=== PATIENT | male | born 1955 | race Hispanic/Latino ===

== ENCOUNTER 2019-11-27 12:19 | Inpatient (IN) | payer OTHER, MEDICARE ==
[~2019-11-27] VITALS: Ht 157.5 cm; Wt 81.6 kg
[~2019-11-27 12:19] MED LIST: FISH1CAP27 PO; GLIP5TAB11 PO; LISI10TA7 PO; TRAM50TA4 PO
[2019-11-27 12:27] LABS: ABG BASE EXCESS -10.7 mmol/L (-2.0-3.0); ABG HCO3 12.2 mmol/L (21.0-28.0); ABG OXYGEN SATURATION 96.3 % (95.0-99.0); ABG PCO2 22 mmHg (35-48)
[2019-11-27 12:57] LABS: BASOPHILS % (AUTO) 0.5 % (0.0-5.0); EOSINOPHILS % (AUTO) 0.7 % (0.0-8.0); HEMATOCRIT 38.5 % (42-54); LYMPHOCYTES % (AUTO) 14.7 % (21.0-51.0); MEAN CORPUSCULAR HEMOGLOBIN 30.5 pg (27.0-33.0); MEAN CORPUSCULAR HGB CONC 34.8 g/dL (32.0-36.0); MEAN CORPUSCULAR VOLUME 87.7 fL (79-99); MONOCYTES % (AUTO) 8.6 % (3.0-13.0); NEUTROPHILS % (AUTO) 74.9 % (40.0-77.0); PLATELET COUNT (AUTO) 425 K/uL (130-400); RED BLOOD CELL COUNT(AUTO) 4.39 MIL/uL (4.50-6.20); RED CELL DISTRIBUTION WIDTH 15.5 % (11.0-15.5); WHITE BLOOD COUNT (AUTO) 8.5 K/uL (4.8-10.8)
[2019-11-27] MEDS ORDERED: ZOSYN 3.375GM+NS 50ML 50 ML IV ONE (13:16)
[2019-11-27] MEDS ORDERED: SODIUM CHLORIDE 0.9% 500ML 500 ML IV ONE (13:17)
[2019-11-27 13:18] LABS: INR 1.13 (0.85-1.15); PARTIAL THROMBOPLASTIN TIME 26.4 SEC (26.3-35.5); PROTHROMBIN TIME 12.1 SEC (9.6-11.6)
[2019-11-27 13:45] LABS: ALBUMIN 2.4 g/dL (3.5-5.0); BILIRUBIN,TOTAL 0.7 mg/dL (0.2-1.0); CREATININE 3.4 mg/dL (0.5-1.5); POTASSIUM 5.8 mmol/L (3.5-5.1); TOTAL PROTEIN, SERUM 9.1 g/dL (6.0-8.3); TROPONIN I 0.1 ng/mL (0.00-0.06)
[2019-11-27] MEDS ORDERED: ENOXAPARIN SODIUM 100 MG/1 ML SQ ONE (13:55)
[2019-11-27] MEDS ORDERED: DEXTROSE 50%-WATER 50 ML DISP.SYRIN IV PRN (16:15)
[2019-11-27] MEDS ORDERED: POTASSIUM CHLORIDE 20 MEQ ERTAB PO PRN (16:15)
[2019-11-27] MEDS ORDERED: ONDANSETRON HCL 4 MG/2 ML VIAL IVP PRN (16:15)
[2019-11-27] MEDS ORDERED: POTASSIUM CHLORIDE 20MEQ/100ML 100 ML IV PRN (16:15)
[2019-11-27] MEDS ORDERED: HYDRALAZINE HCL 20 MG/ML VIAL IV PRN (16:15)
[2019-11-27] MEDS ORDERED: ACETAMINOPHEN 325 MG TAB PO PRN (16:15)
[2019-11-27] MEDS ORDERED: GLUCAGON 1MG KIT 1 MG ML IM PRN (16:15)
[2019-11-27] MEDS ORDERED: MAGNESIUM 2GM PREMIX 50ML 50 ML IV PRN (16:15)
[2019-11-27] MEDS ORDERED: LIDOCAINE HCL-MPF 1% 2ML VIAL IV PRN (16:15)
[2019-11-27] MEDS ORDERED: SODIUM BICARB 8.4% 50ML SYRINGE IVP STA (17:16)
[2019-11-27] MEDS ORDERED: INSULIN HUMULIN R 100 UNIT/ML 3ML IV SCH (19:30)
[2019-11-27] MEDS ORDERED: SODIUM POLYSTYRENE SULFONATE 15 GM/60 ML ML RC SCH (19:30)
[2019-11-27] MEDS ORDERED: CALCIUM GLUCONATE 1 GM in SODIUM CHLORIDE 0.9% 50 ML IV SCH (19:30)
[2019-11-27] MEDS ORDERED: SODIUM POLYSTYRENE SULFONATE 15 GM/60 ML ML ONE (21:01)
[2019-11-27] MEDS ORDERED: CALCIUM GLUCONATE 1 GM/10 ML VIAL IV ONE (21:02)
[2019-11-27] MEDS ORDERED: FAMOTIDINE 20MG TAB 20 MG TAB ONE (21:02)
[2019-11-27] MEDS ORDERED: DEXTROSE 50%-WATER 50 ML DISP.SYRIN IV ONE (21:03)
[2019-11-27] MEDS ORDERED: INSULIN HUMULIN R 100 UNIT/ML 3ML ONE (21:03)
[2019-11-27 23:45] LABS: POTASSIUM 5.5 mmol/L (3.5-5.1)
[2019-11-28] MEDS: INSULIN HUMULIN R 100 UNIT/ML 3ML SQ SCH ×6 (02:00→22:15)
[2019-11-28] MEDS: ENOXAPARIN SODIUM 100 MG/1 ML SQ SCH ×2 (02:00→08:02)
[2019-11-28] MEDS: SODIUM BICARB 8.4% 50ML SYRING 200 MEQ in DEXTROSE 5%-WATER 800 ML IV SCH ×2 (02:00→10:51)
--- NOTE | 2019-11-28 02:00 | NUR ---
Admission Pt admitted to room 225. Brought to room by ER Nurse Logan on stretcher, alert and oriented x4, patient is guinean speaking only. No distress noted. 02 via NC, no sob.
[2019-11-28 02:20] VITALS: BP 113/69
[2019-11-28 03:28] LABS: ABG HCO3 19.9 mmol/L (21.0-28.0); ABG OXYGEN SATURATION 99.1 % (95.0-99.0); ABG PCO2 33 mmHg (35-48)
[2019-11-28 06:49] LABS: BASOPHILS % (AUTO) 0.4 % (0.0-5.0); EOSINOPHILS % (AUTO) 0.6 % (0.0-8.0); HEMATOCRIT 31.7 % (42-54); LYMPHOCYTES % (AUTO) 14.7 % (21.0-51.0); MEAN CORPUSCULAR HGB CONC 32.5 g/dL (32.0-36.0); MEAN CORPUSCULAR VOLUME 83.2 fL (79-99); MONOCYTES % (AUTO) 12.6 % (3.0-13.0); NEUTROPHILS % (AUTO) 71.1 % (40.0-77.0); PLATELET COUNT (AUTO) 310 K/uL (130-400); RED BLOOD CELL COUNT(AUTO) 3.81 MIL/uL (4.50-6.20); RED CELL DISTRIBUTION WIDTH 14.7 % (11.0-15.5)
[2019-11-28 07:00] VITALS: BP 129/60
[2019-11-28 07:03] LABS: INR 1.77 (0.85-1.15); PARTIAL THROMBOPLASTIN TIME 48.9 SEC (26.3-35.5); PROTHROMBIN TIME 18.7 SEC (9.6-11.6)
[2019-11-28] MEDS: FAMOTIDINE 20MG TAB 20 MG TAB PO SCH (08:01)
[2019-11-28 09:22] LABS: ALBUMIN 2.1 g/dL (3.5-5.0); BILIRUBIN,DIRECT 0.2 mg/dL (0.0-0.3); BILIRUBIN,TOTAL 0.6 mg/dL (0.2-1.0); CREATININE 3.2 mg/dL (0.5-1.5); CRP QUANTITATIVE 22.5 mg/L (0.00-9.0); MAGNESIUM 2.2 mg/dL (1.80-2.40); PHOSPHORUS 4.6 mg/dL (2.5-4.9); POTASSIUM 4.1 mmol/L (3.5-5.1); TOTAL PROTEIN, SERUM 7.9 g/dL (6.0-8.3)
[2019-11-28] MEDS ORDERED: TRAMADOL HCL 50 MG TABLET PO PRN (10:15)
[2019-11-28 11:00] VITALS: BP 125/58
[2019-11-28 15:00] VITALS: BP 129/59
[2019-11-28] MEDS: AZITHROMYCIN 250 MG TABLET PO SCH (16:09)
[2019-11-28 16:22] LABS: APPEARANCE,URINE Turbid (CLEAR); BILIRUBIN,URINE Negative (NEGATIVE); COLOR,URINE Yellow (YELLOW); GLUCOSE, URINE (UA) Negative (NEGATIVE); KETONES,URINE Negative (NEGATIVE); LEUKOCYTE ESTERASE ,URINE Negative (NEGATIVE); NITRATE,URINE Negative (NEGATIVE); OCCULT BLOOD,URINE Large (NEGATIVE); PROTEIN,URINE POS 1+ mg/dL (NEGATIVE); UROBILINOGEN,URINE 0.2 mg/dL (0.2-1.0)
[2019-11-28 16:40] LABS: AMORPHOUS SEDIMENT,UR Moderate /LPF (None Seen); BACTERIA,URINE Few /HPF (None Seen); MUCUS,URINE Few LPF (None Seen); SQUAMOUS EPITHELIAL CELL,UR 0-2 /HPF (0-2)
--- NOTE | 2019-11-28 17:21 | NUR ---
CM NOTE spoke to pt and requested this cm to speak to his niece, provided phone # [phone]. call made to niece francis rios states she is also his POA., informed to bring in POA paperwork when able. she states pt resides at home with his brother in law brunilda mclean and recently lost his sister to [place] 19 that he was living with also. pt is independent with ambulation and adls/ provider assists 18hrs week with some adls. no dme. dc plan is back home at time of dc. states no dc needs. Addendum: 11/28/19 at 1729 by MYA PARADA Amended: Links added.
[2019-11-28 19:41] VITALS: BP 126/59
[2019-11-28] MEDS: SODIUM BICARBONATE 650 MG TAB PO SCH (22:16)
[2019-11-28 23:53] VITALS: BP 117/58
[2019-11-29 03:32] VITALS: BP 103/52
[2019-11-29 05:59] LABS: HEMATOCRIT 34.1 % (42-54); MEAN CORPUSCULAR HGB CONC 31.4 g/dL (32.0-36.0); MEAN CORPUSCULAR VOLUME 85.9 fL (79-99); RED BLOOD CELL COUNT(AUTO) 3.97 MIL/uL (4.50-6.20); RED CELL DISTRIBUTION WIDTH 14.6 % (11.0-15.5); WHITE BLOOD COUNT (AUTO) 6.3 K/uL (4.8-10.8)
[2019-11-29 06:03] LABS: MAGNESIUM 1.7 mg/dL (1.80-2.40); PHOSPHORUS 3.8 mg/dL (2.5-4.9)
[2019-11-29] MEDS: INSULIN HUMULIN R 100 UNIT/ML 3ML SQ SCH ×4 (07:03→21:52)
[2019-11-29 08:00] VITALS: BP 130/58
[2019-11-29] MEDS: DEXAMETHASONE SOD PHOSPHATE 4 MG/ML 1ML VIAL IV SCH (08:44)
[2019-11-29] MEDS: ENOXAPARIN SODIUM 100 MG/1 ML SQ SCH (08:44)
[2019-11-29] MEDS: SODIUM BICARBONATE 650 MG TAB PO SCH ×2 (08:44→21:09)
[2019-11-29] MEDS: FOLIC ACID/VITAMIN B COMP W-C 1 CAP TAB PO SCH (08:44)
[2019-11-29] MEDS: FAMOTIDINE 20MG TAB 20 MG TAB PO SCH (08:44)
[2019-11-29 12:00] VITALS: BP 128/60
[2019-11-29] MEDS: AZITHROMYCIN 250 MG TABLET PO SCH (12:57)
[2019-11-29] MEDS: SODIUM CHLORIDE 0.9% 1000ML 1,000 ML IV SCH (12:57)
--- NOTE | 2019-11-29 16:26 | NUR ---
Patient consented for convalescent plasma/blood product administration. Blood bank notified. Consent placed in chart. Family aware
[2019-11-29 17:42] VITALS: BP 133/65
[2019-11-29 21:10] VITALS: BP 127/58
[2019-11-29] MEDS ORDERED: FUROSEMIDE 10 MG/ML 4ML VIAL ONE (22:01)
[2019-11-29 23:37] VITALS: BP 129/59
[2019-11-30 04:22] LABS: BASOPHILS % (AUTO) 0.1 % (0.0-5.0); HEMATOCRIT 30.3 % (42-54); LYMPHOCYTES % (AUTO) 13.5 % (21.0-51.0); MEAN CORPUSCULAR HEMOGLOBIN 27.3 pg (27.0-33.0); MEAN CORPUSCULAR HGB CONC 32.7 g/dL (32.0-36.0); MEAN CORPUSCULAR VOLUME 83.5 fL (79-99); MONOCYTES % (AUTO) 8.7 % (3.0-13.0); NEUTROPHILS % (AUTO) 77.2 % (40.0-77.0); PLATELET COUNT (AUTO) 300 K/uL (130-400); RED BLOOD CELL COUNT(AUTO) 3.63 MIL/uL (4.50-6.20); RED CELL DISTRIBUTION WIDTH 13.8 % (11.0-15.5); WHITE BLOOD COUNT (AUTO) 7.7 K/uL (4.8-10.8)
[2019-11-30 04:46] VITALS: BP 143/55
[2019-11-30] MEDS: INSULIN HUMULIN R 100 UNIT/ML 3ML SQ SCH ×4 (04:49→21:16)
[2019-11-30] MEDS: SODIUM CHLORIDE 0.9% 1000ML 1,000 ML IV SCH (04:50)
[2019-11-30 05:23] LABS: ALBUMIN 2.2 g/dL (3.5-5.0); BILIRUBIN,TOTAL 0.8 mg/dL (0.2-1.0); CREATININE 2.4 mg/dL (0.5-1.5); MAGNESIUM 1.5 mg/dL (1.80-2.40); PHOSPHORUS 2.9 mg/dL (2.5-4.9); POTASSIUM 3.8 mmol/L (3.5-5.1); TOTAL PROTEIN, SERUM 6.3 g/dL (6.0-8.3)
[2019-11-30 08:00] VITALS: BP 117/60
[2019-11-30] MEDS: FOLIC ACID/VITAMIN B COMP W-C 1 CAP TAB PO SCH (08:20)
[2019-11-30] MEDS: FAMOTIDINE 20MG TAB 20 MG TAB PO SCH (08:20)
[2019-11-30] MEDS: SODIUM BICARBONATE 650 MG TAB PO SCH ×2 (08:20→21:13)
[2019-11-30] MEDS: ENOXAPARIN SODIUM 100 MG/1 ML SQ SCH (08:21)
[2019-11-30] MEDS: DEXAMETHASONE SOD PHOSPHATE 4 MG/ML 1ML VIAL IV SCH (08:21)
[2019-11-30 12:00] VITALS: BP 138/64
[2019-11-30] MEDS: AZITHROMYCIN 250 MG TABLET PO SCH (12:13)
[2019-11-30 16:00] VITALS: BP 112/52
[2019-11-30 21:15] VITALS: BP 138/64
[2019-11-30] MEDS: INSULIN GLARGINE 100 UNITS/ML 10 ML VIAL SQ SCH (21:17)
[2019-11-30 23:25] VITALS: BP 136/70
[2019-12-01] MEDS: SODIUM CHLORIDE 0.9% 1000ML 1,000 ML IV SCH (03:45)
[2019-12-01 04:54] LABS: EOSINOPHILS % (AUTO) 0.4 % (0.0-8.0); HEMATOCRIT 31.2 % (42-54); LYMPHOCYTES % (AUTO) 16.2 % (21.0-51.0); MEAN CORPUSCULAR HEMOGLOBIN 27.4 pg (27.0-33.0); MEAN CORPUSCULAR HGB CONC 32.7 g/dL (32.0-36.0); MEAN CORPUSCULAR VOLUME 83.9 fL (79-99); MONOCYTES % (AUTO) 11.1 % (3.0-13.0); NEUTROPHILS % (AUTO) 71.8 % (40.0-77.0); PLATELET COUNT (AUTO) 304 K/uL (130-400); RED BLOOD CELL COUNT(AUTO) 3.72 MIL/uL (4.50-6.20); RED CELL DISTRIBUTION WIDTH 13.9 % (11.0-15.5); WHITE BLOOD COUNT (AUTO) 9.5 K/uL (4.8-10.8)
[2019-12-01 05:07] VITALS: BP 133/70
[2019-12-01 05:34] LABS: BILIRUBIN,TOTAL 0.5 mg/dL (0.2-1.0); CREATININE 1.9 mg/dL (0.5-1.5); POTASSIUM 3.3 mmol/L (3.5-5.1); TOTAL PROTEIN, SERUM 6.5 g/dL (6.0-8.3)
[2019-12-01] MEDS: INSULIN HUMULIN R 100 UNIT/ML 3ML SQ SCH ×4 (07:21→21:04)
[2019-12-01 08:28] VITALS: BP 143/64
[2019-12-01] MEDS: FAMOTIDINE 20MG TAB 20 MG TAB PO SCH (09:15)
[2019-12-01] MEDS: DEXAMETHASONE SOD PHOSPHATE 4 MG/ML 1ML VIAL IV SCH (09:15)
[2019-12-01] MEDS: FOLIC ACID/VITAMIN B COMP W-C 1 CAP TAB PO SCH (09:15)
[2019-12-01] MEDS: SODIUM BICARBONATE 650 MG TAB PO SCH ×2 (09:15→21:04)
[2019-12-01] MEDS: ENOXAPARIN SODIUM 100 MG/1 ML SQ SCH (09:16)
[2019-12-01] MEDS: POTASSIUM CHLORIDE 10% ELIXIR 20 MEQ/15 ML UDCUP PO PRN ×2 (10:31→12:13)
[2019-12-01] MEDS: AZITHROMYCIN 250 MG TABLET PO SCH (12:13)
[2019-12-01 12:45] VITALS: BP 136/69
[2019-12-01 16:17] VITALS: BP 129/59
[2019-12-01 20:16] VITALS: BP 120/58
[2019-12-01] MEDS: INSULIN GLARGINE 100 UNITS/ML 10 ML VIAL SQ SCH (21:03)
[2019-12-01 23:37] VITALS: BP 117/51
[2019-12-02] MEDS: SODIUM CHLORIDE 0.9% 1000ML 1,000 ML IV SCH ×2 (00:29→16:46)
[2019-12-02 03:31] VITALS: BP 127/59
[2019-12-02 05:58] LABS: CREATININE 1.9 mg/dL (0.5-1.5)
[2019-12-02] MEDS: INSULIN HUMULIN R 100 UNIT/ML 3ML SQ SCH ×4 (06:16→18:31)
[2019-12-02 08:26] VITALS: BP 145/65
[2019-12-02] MEDS: ENOXAPARIN SODIUM 100 MG/1 ML SQ SCH (08:47)
[2019-12-02] MEDS: FAMOTIDINE 20MG TAB 20 MG TAB PO SCH (08:51)
[2019-12-02] MEDS: DEXAMETHASONE SOD PHOSPHATE 4 MG/ML 1ML VIAL IV SCH (08:51)
[2019-12-02] MEDS: FOLIC ACID/VITAMIN B COMP W-C 1 CAP TAB PO SCH (08:51)
[2019-12-02] MEDS: SODIUM BICARBONATE 650 MG TAB PO SCH ×2 (08:51→20:47)
[2019-12-02 12:24] VITALS: BP 132/66
[2019-12-02] MEDS: AZITHROMYCIN 250 MG TABLET PO SCH (12:40)
--- NOTE | 2019-12-02 14:30 | NUR ---
BS 420 COVERED W SSC 16 UNITS AND MACY PFEIFFER NOTIFIED ORDERS TO RECHECK IN ONE HOUR. [facility]PORT HAS BEEN CALLED TO [facility] RODRIGUEZ.
--- NOTE | 2019-12-02 14:45 | NUR ---
DC PLAN SPOKE TO KENTRELL REGARDING DC PLAN GAVE OKAY FOR [facility] WEBSITE. CALLED PATIENT ROOM SPOKE TO MR. ELIN SPENCE. SAID OKAY WITH GOING FOR THERAPY TO [facility]. UNDERSTOOD THAT [facility] IS FROM [facility] FOR COVID PATIENTS. GAVE VERBAL CONSENT GOT SECONDARY WITNESS ALVINA. LENORA ORTIZ. INFO EMAILED TO [facility] WEBSITE. PENDING CALL BACK. Addendum: 12/02/19 at 1447 by LAUREN MARCUS RN CM Amended: Links added.
[2019-12-02] MEDS ORDERED: DEXA6TAB PO (15:53)
[2019-12-02 16:35] VITALS: BP 139/58
--- NOTE | 2019-12-02 17:03 | NUR ---
DC PLAN AFTER TALKING TO PATIENT, NIECES AND NEPHEWS. FAMILY OKAY WITH HIM GOING TO [facility]. ANSWER ALL THE QUESTIONS REGARDING FACILITY. LET KENTRELL LIME SLAKER KNOW ALSO LET HER KNOW OF REQUEST FROM HOSPITALIST REGARDING NO PLAN FOR PNEUMOMEDIASTANIUM IN CT FROM 11/26. LET NURSE KNOW OF DC ORDER AND MOT PENDING HOUSE SIGNATURE FOR TRANSFER. PATIENT WILL GO VIA EMS DUE TO DEBILITY AND NC 4L. Addendum: 12/02/19 at 1707 by LAUREN MARCUS RN CM Amended: Links added.
--- NOTE | 2019-12-02 17:30 | NUR ---
RECHECK ON BS 317 KENTRELL CAVAZOS NOTIFIED TOLD TO HOLD TRANSFER AT THIS TIME, NO FURTHER ORDERS, LAY CALLED BACK AT [facility] AND UPDATE GIVEN AT THIS TIME
--- NOTE | 2019-12-02 18:36 | NUR ---
MACY PFEIFFER TEXT BACK TO COVER W/SSC 14 UNITS GIVEN LILIANA R.
[2019-12-02 19:54] VITALS: BP 127/61
[2019-12-02] MEDS: INSULIN GLARGINE 100 UNITS/ML 10 ML VIAL SQ SCH (20:49)
[2019-12-02 23:22] VITALS: BP 118/58
[2019-12-03 03:22] VITALS: BP 115/59
[2019-12-03 05:40] LABS: BASOPHILS % (AUTO) 0.1 % (0.0-5.0); EOSINOPHILS % (AUTO) 1.3 % (0.0-8.0); HEMATOCRIT 30.7 % (42-54); LYMPHOCYTES % (AUTO) 17.7 % (21.0-51.0); MEAN CORPUSCULAR HGB CONC 31.3 g/dL (32.0-36.0); MEAN CORPUSCULAR VOLUME 86.2 fL (79-99); MONOCYTES % (AUTO) 10.8 % (3.0-13.0); NEUTROPHILS % (AUTO) 69.1 % (40.0-77.0); PLATELET COUNT (AUTO) 289 K/uL (130-400); RED BLOOD CELL COUNT(AUTO) 3.56 MIL/uL (4.50-6.20); WHITE BLOOD COUNT (AUTO) 9.9 K/uL (4.8-10.8)
[2019-12-03 05:58] LABS: MAGNESIUM 1.2 mg/dL (1.80-2.40); PHOSPHORUS 2.7 mg/dL (2.5-4.9)
[2019-12-03] MEDS: INSULIN HUMULIN R 100 UNIT/ML 3ML SQ SCH ×2 (07:30→11:54)
[2019-12-03 08:24] VITALS: BP 143/56
[2019-12-03] MEDS: FAMOTIDINE 20MG TAB 20 MG TAB PO SCH (09:28)
[2019-12-03] MEDS: DEXAMETHASONE SOD PHOSPHATE 4 MG/ML 1ML VIAL IV SCH (09:28)
[2019-12-03] MEDS: FOLIC ACID/VITAMIN B COMP W-C 1 CAP TAB PO SCH (09:28)
[2019-12-03] MEDS: ENOXAPARIN SODIUM 100 MG/1 ML SQ SCH (09:29)
[2019-12-03] MEDS: SODIUM BICARBONATE 650 MG TAB PO SCH (10:23)
[2019-12-03 12:14] VITALS: BP 112/59
[2019-12-03] MEDS: AZITHROMYCIN 250 MG TABLET PO SCH (13:19)
--- NOTE | 2019-12-03 14:28 | NUR ---
EMS TRANSFER TO [facility]. TELELMETRY MONITOR REMOVED, BELONGINGS GIVEN TO TRANSPORT TEAM AND D/C PACKET GIVEN TO TRANSPORT TEAM, REPORT CALLED TO ERIKA RODRIGUEZ AT [facility].
== END 2019-12-03 14:30 | disposition disaster alternative care site (69) | DRG 177 ==
LOC: EDH 12:19 → OBSVTOIN 15:51 → EDHIP 15:51 → UNDOADMOB 15:51 → INTOOBSV 15:51 → 2DH 11-28 01:28 → EDHIP 11-28 01:28
PROVIDERS: ADMIT Internal Medicine Critical Care Medicine; ATTEND Internal Medicine Critical Care Medicine
PROC: XW13325 Transfusion of Convalescent Plasma (Nonautologous) into Peripheral Vein, Percutaneous Approach, New Technology Group 5 (ICD-10-PCS; principal; 2019-11-29)
DX: U07.1 COVID-19 (principal); J12.89 Other viral pneumonia; J96.01 Acute respiratory failure with hypoxia; J90 Pleural effusion, not elsewhere classified; N17.9 Acute kidney failure, unspecified; M62.82 Rhabdomyolysis; I10 Essential (primary) hypertension; E87.5 Hyperkalemia; E11.9 Type 2 diabetes mellitus without complications; D64.9 Anemia, unspecified; E11.22 Type 2 diabetes mellitus with diabetic chronic kidney disease; E11.51 Type 2 diabetes mellitus with diabetic peripheral angiopathy without gangrene; E78.5 Hyperlipidemia, unspecified; I12.9 Hypertensive chronic kidney disease with stage 1 through stage 4 chronic kidney disease, or unspecified chronic kidney disease; N18.9 Chronic kidney disease, unspecified; Z86.19 Personal history of other infectious and parasitic diseases; Z88.0 Allergy status to penicillin
CPT/HCPCS: 36415; 36430; 36600; 71045; 71250; 76770; 80048; 80053; 81001; 82248; 82550; 82728; 82803; 82948; 83605; 83735; 83874; 84100; 84132; 84145; 84484; 85025; 85027; 85378; 85610; 85730; 86140; 86900; 86901; 86927; 87040; 87088; 87426; 93005; 93970; 97039; G0378; J0610; J1100; J1650; J1815; J1940; J2543; J3475; J3490; J7030; J7040; J7070; U0003

== ENCOUNTER 2020-02-11 02:14 | Inpatient (IN) | payer OTHER, MEDICARE ==
[~2020-02-11] VITALS: Ht 157.5 cm; Wt 88.9 kg
[~2020-02-11 02:14] MED LIST changes: +DEXA6TAB PO
[2020-02-11] MEDS ORDERED: MORPHINE SULFATE 2 MG/ML 1ML SYG ONE (02:48)
[2020-02-11] MEDS ORDERED: ONDANSETRON HCL 4 MG/2 ML VIAL ONE (02:48)
[2020-02-11 02:53] LABS: BASOPHILS % (AUTO) 1.1 % (0.0-5.0); EOSINOPHILS % (AUTO) 6.7 % (0.0-8.0); HEMATOCRIT 35.1 % (42-54); MEAN CORPUSCULAR HEMOGLOBIN 27.9 pg (27.0-33.0); MEAN CORPUSCULAR HGB CONC 31.3 g/dL (32.0-36.0); MEAN CORPUSCULAR VOLUME 89.1 fL (79-99); MONOCYTES % (AUTO) 10.1 % (3.0-13.0); NEUTROPHILS % (AUTO) 59.7 % (40.0-77.0); PLATELET COUNT (AUTO) 341 K/uL (130-400); RED BLOOD CELL COUNT(AUTO) 3.94 MIL/uL (4.50-6.20); RED CELL DISTRIBUTION WIDTH 14.9 % (11.0-15.5); WHITE BLOOD COUNT (AUTO) 10.5 K/uL (4.8-10.8)
[2020-02-11 03:02] LABS: CREATININE 1.6 mg/dL (0.5-1.5); POTASSIUM 4.5 mmol/L (3.5-5.1)
[2020-02-11 03:06] LABS: BILIRUBIN,TOTAL 0.3 mg/dL (0.2-1.0); TOTAL PROTEIN, SERUM 7.3 g/dL (6.0-8.3)
[2020-02-11 04:00] LABS: APPEARANCE,URINE Cloudy (CLEAR); BILIRUBIN,URINE Negative (NEGATIVE); COLOR,URINE Yellow (YELLOW); GLUCOSE, URINE (UA) Negative (NEGATIVE); KETONES,URINE Negative (NEGATIVE); LEUKOCYTE ESTERASE ,URINE Large (NEGATIVE); NITRATE,URINE Positive (NEGATIVE); OCCULT BLOOD,URINE Negative (NEGATIVE); PH,URINE 6.5 (5.0-8.0); PROTEIN,URINE Negative (NEGATIVE)
[2020-02-11 04:17] LABS: BACTERIA,URINE Many /HPF (None Seen); RBC,URINE None Seen /HPF (0-1); WBC,URINE 26-50 /HPF (0-1)
[2020-02-11] MEDS ORDERED: DIATR MEGLU/DIATRIZOATE SODIUM 30 ML BOTTLE ONE (05:50)
[2020-02-11] MEDS ORDERED: SODIUM CHLORIDE 0.9% 50 ML IV ONE (06:30)
[2020-02-11] MEDS ORDERED: CEFTRIAXONE SODIUM 2 GM VIAL ONE (08:21)
[2020-02-11] MEDS ORDERED: SODIUM CHLORIDE 0.9% 100 ML IV ONE (08:22)
[2020-02-11] MEDS: D5W-1/2 NS/20MEQ KCL 1,000 ML IV SCH (10:15)
[2020-02-11] MEDS ORDERED: MORPHINE SULFATE 2 MG/ML 1ML SYG IV PRN (12:15)
[2020-02-11] MEDS ORDERED: IPRATROPIUM/ALBUTEROL SULFATE 3 ML SOLUTION IH PRN (12:15)
[2020-02-11] MEDS ORDERED: HYDRALAZINE HCL 20 MG/ML VIAL IV PRN (12:15)
[2020-02-11] MEDS ORDERED: LIDOCAINE HCL-MPF 1% 2ML VIAL IV PRN (12:15)
[2020-02-11] MEDS ORDERED: GLUCAGON 1MG KIT 1 MG ML IM PRN (12:15)
[2020-02-11] MEDS ORDERED: ONDANSETRON HCL 4 MG/2 ML VIAL IVP PRN (12:15)
[2020-02-11] MEDS ORDERED: DEXTROSE 50%-WATER 50 ML DISP.SYRIN IV PRN (12:15)
[2020-02-11] MEDS ORDERED: POTASSIUM CHLORIDE 10MEQ/100ML 100 ML IV PRN (12:15)
[2020-02-11] MEDS ORDERED: LEVOFLOXACIN 500 MG/D5W 100 ML 100 ML ONE (13:37)
[2020-02-11] MEDS ORDERED: LEVOFLOXACIN 500 MG/D5W 100 ML 100 ML IV SCH (14:00)
[2020-02-11] MEDS ORDERED: METRONIDAZOLE 500MG/100ML BAG 100 ML ONE (15:46)
[2020-02-12 05:32] LABS: HEMATOCRIT 31.8 % (42-54); MEAN CORPUSCULAR HGB CONC 31.4 g/dL (32.0-36.0); MEAN CORPUSCULAR VOLUME 89.1 fL (79-99); RED BLOOD CELL COUNT(AUTO) 3.57 MIL/uL (4.50-6.20); RED CELL DISTRIBUTION WIDTH 14.6 % (11.0-15.5); WHITE BLOOD COUNT (AUTO) 6.6 K/uL (4.8-10.8)
[2020-02-12 05:38] LABS: CREATININE 1.4 mg/dL (0.5-1.5); POTASSIUM 3.9 mmol/L (3.5-5.1)
[2020-02-12] MEDS ORDERED: ENOXAPARIN SODIUM 40 MG/0.4 ML SYRINGE SQ ONE (09:00)
[2020-02-12] MEDS ORDERED: FAMOTIDINE/PF 20 MG/2 ML VIAL IV ONE (09:01)
--- NOTE | 2020-02-12 11:49 | NUR ---
ARRIVED TO FLOOR Report received from Marcelle STALLINGS RN at 1135 Pt arrived to floor, transferred to bed at 1150. NAD at this time. Will initiate admission process.
[2020-02-12 12:30] VITALS: BP 150/64
[2020-02-12] MEDS: METRONIDAZOLE 500MG/100ML BAG 100 ML IVPB SCH ×5 (13:01→21:03)
[2020-02-12] MEDS: SODIUM CHLORIDE 0.9% 1000ML 1,000 ML IV SCH ×4 (13:01→18:43)
[2020-02-12] MEDS: FAMOTIDINE/PF 20 MG/2 ML VIAL IV SCH (13:02)
[2020-02-12] MEDS: ENOXAPARIN SODIUM 40 MG/0.4 ML SYRINGE SQ SCH (13:02)
[2020-02-12] MEDS: D5W-1/2 NS/20MEQ KCL 1,000 ML IV SCH ×3 (13:02→16:15)
[2020-02-12] MEDS ORDERED: INSLAN SQ (13:29)
[2020-02-12] MEDS ORDERED: LISI10TA7 PO (13:29)
[2020-02-12] MEDS ORDERED: ROSU40TA21 PO (13:29)
[2020-02-12] MEDS ORDERED: LEVOFLOXACIN 250 MG/D5W 50ML 50 ML IVPB SCH (14:00)
[2020-02-12 16:00] VITALS: BP 145/72
--- NOTE | 2020-02-12 16:13 | NUR ---
INITIAL: Met with pt this afternoon to discuss dcp. Pt mentions that he lives w his nephew( Michael Witt) and brother in law (Viri Witt). Pt mentions that he is independent w ambulation and ADLs. He has provider services 3hrs/day. He owns a wc and states that his niece (Sonja) assists w transportation. Pt mentions that he feels safe and comfortable to return home at ri. CM to continue to follow and wait for Md recommendations.
[2020-02-12 19:35] VITALS: BP 163/97
[2020-02-12 23:49] VITALS: BP 135/61
[2020-02-13 04:16] VITALS: BP 147/65
[2020-02-13] MEDS: METRONIDAZOLE 500MG/100ML BAG 100 ML IVPB SCH (05:46)
[2020-02-13 08:00] VITALS: BP 148/64
[2020-02-13] MEDS: ENOXAPARIN SODIUM 40 MG/0.4 ML SYRINGE SQ SCH (08:41)
[2020-02-13] MEDS: FAMOTIDINE/PF 20 MG/2 ML VIAL IV SCH (08:41)
[2020-02-13 11:46] VITALS: BP 144/68
[2020-02-13] MEDS: SODIUM CHLORIDE 0.9% 1000ML 1,000 ML IV SCH ×3 (12:55→23:09)
[2020-02-13] MEDS ORDERED: MERO500V21 IV (14:17)
[2020-02-13] MEDS: MEROPENEM 500 MG VIAL IVP SCH ×2 (14:43→23:08)
--- NOTE | 2020-02-13 15:30 | NUR ---
[facility] Order received for SNF referral for buttermilk drier operator IV ABX. Spoke w pt and niece Henna (over the phone) to discuss Md recommendations. Reviewed w them in network facilities. Pt and niece decided on [facility] DIANA/PC consent signed. Referral/PASSR faxed to Alej[facility] (cover for [facility]). Informed pending PICC and COVID test. CM to continue to follow.
[2020-02-13 16:00] VITALS: BP 147/55
[2020-02-13] MEDS: INSULIN GLARGINE 100 UNITS/ML 10 ML VIAL SQ SCH (20:21)
[2020-02-13] MEDS: Rosuvastatin Calcium 40 MG PO SCH (20:21)
[2020-02-13 20:22] VITALS: BP 137/64
--- NOTE | 2020-02-13 20:25 | NUR ---
MEDS SHIFT ASSESSMENT DONE, PLEASE REFER TO CHART. DUE MEDS ADMINISTERED, TOLERATED WELL. CALL LIGHT WITHIN REACH. WILL MONITOR PT. Addendum: 02/13/20 at 2156 by GREG AGUIRRE RN RN Amended: Links added.
--- NOTE | 2020-02-13 23:20 | NUR ---
CONSENT PT INFORMED OF PLAN FOR PICC LINE PLACEMENT. PT VERBALIZED UNDERSTANDING AND AGREED TO PROCEDURE. CONSENT SIGNED BY PT, WITNESSED BY SECURITY ASSISTANT. FORM PLACED IN CHART.
[2020-02-13 23:52] VITALS: BP 164/78
--- NOTE | 2020-02-14 01:41 | NUR ---
ROUNDS PT RESTING WELL. NO DISTRESS NOTED. KEPT UNDISTURBED FOR NOW. WILL CONTINUE TO MONITOR. CALL LIGHT WITHIN REACH.
[2020-02-14 04:26] VITALS: BP 132/67
[2020-02-14 05:14] LABS: PARTIAL THROMBOPLASTIN TIME 27.4 SEC (26.3-35.5); PROTHROMBIN TIME 10.8 SEC (9.6-11.6)
[2020-02-14] MEDS: MEROPENEM 500 MG VIAL IVP SCH ×3 (06:01→23:05)
--- NOTE | 2020-02-14 06:05 | NUR ---
MEDS PT ALREADY AWAKE, NO CONCERNS VERBALIZED. NO DISTRESS NOTED. DUE MEDS ADMINISTERED, TOLERATED WELL. KEPT COMFORTABLE. FOR MORE CARE.
[2020-02-14 07:58] VITALS: BP 142/73
[2020-02-14] MEDS: INSULIN GLARGINE 100 UNITS/ML 10 ML VIAL SQ SCH ×2 (08:27→20:13)
[2020-02-14] MEDS: ENOXAPARIN SODIUM 40 MG/0.4 ML SYRINGE SQ SCH (08:47)
[2020-02-14] MEDS: FAMOTIDINE/PF 20 MG/2 ML VIAL IV SCH (08:48)
[2020-02-14] MEDS: LISINOPRIL 10 MG TABLET PO SCH (08:48)
[2020-02-14] MEDS: SODIUM CHLORIDE 0.9% 1000ML 1,000 ML IV SCH ×2 (10:11→20:13)
[2020-02-14 11:31] VITALS: BP 138/64
[2020-02-14 16:31] VITALS: BP 143/75
[2020-02-14 19:56] VITALS: BP 150/72
[2020-02-14] MEDS: Rosuvastatin Calcium 40 MG PO SCH (20:08)
--- NOTE | 2020-02-14 20:15 | NUR ---
MEDS SHIFT ASSESSMENT DONE, PLEASE REFER TO CHART. DUE MEDS ADMINISTERED, TOLERATED WELL. KEPT COMFORTABLE IN BED. CALL LIGHT WITHIN REACH. WILL MONITOR PT. Addendum: 02/14/20 at 2048 by GREG AGUIRRE RN RN Amended: Links added.
[2020-02-14 23:26] VITALS: BP 141/71
[2020-02-15] VITALS (8 sets, daily range): BP systolic 130–180; BP diastolic 67–91
--- NOTE | 2020-02-15 02:00 | NUR ---
ROUNDS PT RESTING WELL, FAIRLY ASLEEP. NO DISTRESS NOTED. KEPT UNDISTURBED FOR NOW. WILL CONTINUE TO MONITOR.
[2020-02-15] MEDS: SODIUM CHLORIDE 0.9% 1000ML 1,000 ML IV SCH ×3 (03:02→16:15)
[2020-02-15] MEDS: MEROPENEM 500 MG VIAL IVP SCH ×3 (05:29→23:34)
--- NOTE | 2020-02-15 05:34 | NUR ---
ROUNDS PT STILL SLEEPY BUT COHERENT WHEN CONVERSING. DENIES ANY NEEDS AT THIS TIME. NO DISTRESS NOTED. DUE IV ANTIBIOTICS HUNG. KEPT RESTED. FOR MORE CARE.
[2020-02-15] MEDS: ENOXAPARIN SODIUM 40 MG/0.4 ML SYRINGE SQ SCH (10:21)
[2020-02-15] MEDS: FAMOTIDINE/PF 20 MG/2 ML VIAL IV SCH (10:21)
[2020-02-15] MEDS: LISINOPRIL 10 MG TABLET PO SCH (10:21)
[2020-02-15] MEDS: INSULIN GLARGINE 100 UNITS/ML 10 ML VIAL SQ SCH ×2 (11:09→21:14)
[2020-02-15] MEDS ORDERED: LABETALOL 20 MG/4 ML DISP.SYRIN IV PRN (17:15)
[2020-02-15] MEDS: Rosuvastatin Calcium 40 MG PO SCH (21:00)
[2020-02-16 03:20] VITALS: BP 135/66
[2020-02-16 06:09] LABS: HEMATOCRIT 29.3 % (42-54); MEAN CORPUSCULAR HEMOGLOBIN 27.9 pg (27.0-33.0); MEAN CORPUSCULAR HGB CONC 32.1 g/dL (32.0-36.0); MEAN CORPUSCULAR VOLUME 86.9 fL (79-99); RED BLOOD CELL COUNT(AUTO) 3.37 MIL/uL (4.50-6.20); RED CELL DISTRIBUTION WIDTH 14.1 % (11.0-15.5); WHITE BLOOD COUNT (AUTO) 7.7 K/uL (4.8-10.8)
[2020-02-16 06:32] LABS: ALBUMIN 2.4 g/dL (3.5-5.0); BILIRUBIN,TOTAL 0.2 mg/dL (0.2-1.0); CREATININE 1.2 mg/dL (0.5-1.5); POTASSIUM 3.5 mmol/L (3.5-5.1); TOTAL PROTEIN, SERUM 5.9 g/dL (6.0-8.3)
[2020-02-16 08:00] VITALS: BP 136/68
[2020-02-16] MEDS: Rosuvastatin Calcium 40 MG PO SCH (08:22)
[2020-02-16] MEDS: FAMOTIDINE/PF 20 MG/2 ML VIAL IV SCH (08:31)
[2020-02-16] MEDS: MEROPENEM 500 MG VIAL IVP SCH ×2 (08:31→16:26)
[2020-02-16] MEDS: ENOXAPARIN SODIUM 40 MG/0.4 ML SYRINGE SQ SCH (08:31)
[2020-02-16] MEDS: LISINOPRIL 10 MG TABLET PO SCH (08:31)
[2020-02-16] MEDS: INSULIN GLARGINE 100 UNITS/ML 10 ML VIAL SQ SCH (08:34)
[2020-02-16] MEDS: SODIUM CHLORIDE 0.9% 1000ML 1,000 ML IV SCH (11:25)
[2020-02-16 12:00] VITALS: BP 142/68
--- NOTE | 2020-02-16 13:29 | NUR ---
[facility] APPROVED PER MARSHALL FLORES, AUTH RECEIVED FOR SNF. PRIMARY NURSE, ALESSANDRA RODRIGUEZ, MADE AWARE. PRIMARY NURSE TO CALL CHRONIC DISEASE EPIDEMIOLOGIST FROM [facility] AND OBTAIN MED REC. STANDING DC ORDER IN [employer]. PATIENT TO DC VIA SNF FACILITY [facility].
[2020-02-16 16:00] VITALS: BP 138/70
--- NOTE | 2020-02-16 18:07 | NUR ---
REPORT GIVEN TO ANABEL FROM [facility] . MED RECONCILATION FAXED AND ORIGINAL IN PACKET TO BE SENT WITH FACILITY CAKE FROSTER. VITALS STABLE AT DC
== END 2020-02-16 18:50 | DRG 389 ==
LOC: EDH 02:14 → OBSVTOIN 12:06 → EDHIP 12:06 → 4AH 02-12 11:52
PROVIDERS: ADMIT Internal Medicine Critical Care Medicine; ATTEND Internal Medicine Critical Care Medicine
PROC: 02HV33Z Insertion of Infusion Device into Superior Vena Cava, Percutaneous Approach (ICD-10-PCS; principal; 2020-02-14)
DX: K56.600 Partial intestinal obstruction, unspecified as to cause (principal); N17.9 Acute kidney failure, unspecified; N39.0 Urinary tract infection, site not specified; E66.9 Obesity, unspecified; E11.9 Type 2 diabetes mellitus without complications; I10 Essential (primary) hypertension; E78.5 Hyperlipidemia, unspecified; B96.1 Klebsiella pneumoniae [K. pneumoniae] as the cause of diseases classified elsewhere; Z20.828 Contact with and (suspected) exposure to other viral communicable diseases; Z68.35 Body mass index [BMI] 35.0-35.9, adult; Z88.0 Allergy status to penicillin; Z79.4 Long term (current) use of insulin; Z79.899 Other long term (current) drug therapy
CPT/HCPCS: 36415; 71045; 74018; 74176; 80048; 80053; 81001; 82150; 82550; 82948; 83690; 83880; 84484; 85025; 85027; 85610; 85730; 87077; 87088; 87186; 93005; 94664; 97039; C1894; G0378; J0696; J1650; J1956; J2185; J2405; J3480; J3490; J7030; Q9963; U0003

== ENCOUNTER 2025-03-27 18:48 | Emergency (ER) | payer OTHER, MEDICAID ==
[~2025-03-27] VITALS: Ht 167.6 cm; Wt 104.3 kg
[~2025-03-27 18:48] MED LIST changes: -DEXA6TAB PO; -FISH1CAP27 PO; -GLIP5TAB11 PO; +INSLAN SQ; +LISI10TA24 PO; -LISI10TA7 PO; +MERO500V21 IV; +ROSU40TA88 PO; -TRAM50TA4 PO
[2025-03-27 19:04] VITALS: BP 170/88; PULSE 83; RESP 18; TEMP 98
--- NOTE | 2025-03-27 19:37 | ERN ---
ED Note History of Present Illness Stated Complaint: FALL Chief Complaint: Multiple Trauma/Fall Time Seen by MD: 19:11 Dictation: This is a 69-year-old male who presented to the emergency room by a private vehicle with complaints of having tripped and fell for evaluation. This happe ara a little while ago when he was apparently doing laundry and turned around and did not look fell flat on the face and sustained abrasions and injuries to the face as well as he tried to break the fall with his hands and complaints of the hand pain. No loss of consciousness, patient does not use any blood thinners. No history of any headache blurred vision slurred speech diplopia motor weakness or seizure activity. Denied any other pain or injury no neck pain. No dizziness chest pain pressure PND orthopnea. Temperature 98 pulse 83 respirations 18 blood pressure 170/88 with a pulse oximetry of 98% on room air Chronic medical problems include diabetes mellitus type 2, hypertension, hypercholesterolemia and history of a partial SBO Allergies: Coded Allergies: Penicillins (Verified Allergy, Unknown, 11/27/19) Home Meds Active Scripts Meropenem (Merrem) 500 Mg Vial, 500 MG IV Q8H for 10 Days, #30 VIAL Prov:ESCALERAGOLDYVOBENNY STALLINGS AGACNP 02/13/20 Reported Medications Insulin Glargine,Hum.rec.anlog (Lantus) 100 Units/Ml Inj, 12 UNITS SQ BID, ML 02/12/20 Lisinopril (Lisinopril) 10 Mg Tablet, 10 MG PO DAILY, TAB 02/12/20 Rosuvastatin Calcium (Rosuvastatin Calcium) 40 Mg Tablet, 40 MG PO HS, TAB 02/12/20 Past Medical History Past Medical History: Diabetes-Type II, High Cholesterol, Hypertension Surgical History: None RN Note Reviewed/Agreed w/PFSH: Yes Review of System Dictation Constitutional: Negative for fever,chills, and weight loss Eyes: Negative for injury, pain,redness, and discharge positive for injury of the face with a abrasion, bridge of the nose when he tripped and fell ENT: Negative for injury,pain or swelling Cardiovascular: Negative for chest pain, palpitations, and edema Respiratory: Negative for shortness of breath, cough, and wheezing, Abdomen/GI: Negative for abdominal pain, nausea, vomiting, diarrhea, and constipation Back: Negative for injury and pain : Negative for injury, bleeding and discharge MS/Extremity: Negative for injury and deformity Skin: Negative for rash, and discoloration Neuro: Negative for headache, weakness, numbness, tingling, and seizure Psych: Negative for suicide ideation, homicidal ideation, and hallucinations Initial Vital Sign VS Vital Signs Date Time Temp Pulse Resp B/P (MAP) Pulse Ox O2 Delivery O2 Flow Rate FiO2 03/27/25 19:04 98.1 83 18 170/88 98 Room Air Physical Exam Dictation General: awake, alert, NAD morbidly obese male Head/Face: Normocephalic, atraumatic abrasions in the left eyebrow area medially and nose no raccoon eyes Eyes: PERRL, EOMI, vision at baseline ENT: oral cavity clear, TMs clear, no signs of infection, nose appears Crooked with deformity below the nasal bridge Neck: Trachea midline, supple, no nuchal rigidity, no C-spine tenderness, step- off. Cardiovascular: RRR, normal S1/S2, No MRGs, no JVD Respiratory: CTAB, no respiratory distress, No rales or wheezes Abdomen: Soft, non-tender, non-distended, normal bowel sounds, no guarding or rebound. Skin: Warm, dry, normal turgor, no rash MS/Extremity: Pulses equal, no cyanosis, neurovascular intact, FROM no deformities of the hands or wrists or extremities Neuro: COAx4, GCS 15, strength 5/5, CN 2-12 intact, normal cerebellar exam, normal gait, Psych: Normal behavior, mood, and affect normal Extremities-trace edema without any palpable cords, Homans sign is negative Results (Laboratory/Radiology) Labs Reviewed?: Yes CT Scan Comment: REASON: h/o fall facial injury and abrasions ORDERING PHYSICIAN: JAYLEN VINCENT MD PROCEDURE: [facility] WO - CT MAXILLOFACIAL W/O CONTRAST EXAM: CT Maxillofacial Without IV contrast. CLINICAL HISTORY: h/o fall facial injury and abrasions TECHNIQUE: Axial computed tomography images of the face without intravenous contrast. Sagittal and coronal reformatted images were generated. CONTRAST: None. COMPARISON: None provided. FINDINGS: FACIAL BONES/ORBITS: Nasal bone fractures, fracture of the vomer SOFT TISSUES: The soft tissues are unremarkable. No radiopaque foreign body or focal fluid collection seen. MISCELLANEOUS: Numerous dental caries IMPRESSION: 1. Nasal bone fractures, fracture of the vomer 2. Numerous dental caries /[place] DICTATED BY: DIMITRY MOLINA MD DATE: 03/27/252110 ELECTRONICALLY SIGNED BY: DIMITRY MOLINA MD DATE: 03/27/252110 ED Course ED Course Orders Procedure Category Date Status Time Ct Maxillofacial W/O CT 03/27/25 Resulted Contrast 19:32 Orphenadrine Citrate PHA 03/27/25 Complete (Norflex) 20:00 Current Medications Medications (Trade) Dose Ordered Sig/Rayray Route PRN Reason Start Time Stop Time Status Last Admin Dose Admin Orphenadrine Citrate (Norflex) 60 mg ONCE ONCE IM 03/27/25 20:00 03/27/25 20:01 DC 03/27/25 20:07 Vital Signs Date Time Temp Pulse Resp B/P (MAP) Pulse Ox O2 Delivery O2 Flow Rate FiO2 03/27/25 19:04 98.1 83 18 170/88 98 Room Air Medical Decision Making MDM Differential diagnosis: Closed head injury, intracranial event, depressed skull fractures, whiplash injury to the neck, herniated discs, cervical vertebral fracture, facial injuries-fractures, contusions and hematoma This is a 69-year-old male who presented to the emergency room by a private vehicle with complaints of having tripped and fell for evaluation. This happened a little while ago when he was apparently doing laundry and turned around and did not look fell flat on the face and sustained abrasions and in juries to the face as well as he tried to break the fall with his hands and complaints of the hand pain. No loss of consciousness, patient does not use any blood thinners. No history of any headache blurred vision slurred speech diplopia motor weakness or seizure activity. No dizziness chest pain pressure PND orthopnea. Temperature 98 pulse 83 respirations 18 blood pressure 170/88 with a pulse oximetry of 98% on room air Chronic medical problems include diabetes mellitus type 2, hypertension, hypercholesterolemia and history of a partial SBO 8:[address] scan showed fracture of vomer. No orbital fracture or base of the skull fracture noted. 8:15 p.m. I updated the patient on the CT scan results, and the facial abrasions cleaning and wound dressing done. Empiric antibiotic levofloxacin. Referral to ENT physician as outpatient to address the nasal fracture. Rationale: Tests considered and ordered secondary to shared decision making include: Previous outside records reviewed: Old ER visits. Risk of complication and/or morbidity or mortality of patient management: None Medications-Per medication reconciliation Need for hospitalization: Patient does not meet criteria for hospitalization. Need for emergency major/minor surgery: No There are no social concerns with this patient. Prescription drug management Prescriptions will include symptomatic care Patient's prior external medical records from other ER visits were reviewed by me as indicated. Prior testing and results from previous visits were reviewed. Prior tests were taken into account with medical decision making and resource utilization, independent historian/historians were used to obtain complete medical history. I independently interpreted the test that were performed, results were reviewed by me and considered findings on radiology if ordered. Medical management and examination interpretation discussions were had by me with other qualified healthcare professionals as indicated for the patient's care. Problem List Problem List: (1) Fall from standing (2) Facial injury (3) Nasal bone fracture DX & DISP Disposition: Discharge Departure Impression: Primary Impression: Fall from standing Additional Impressions: Facial injury, Nasal bone fracture Condition: Stable Scripts Levofloxacin (Levofloxacin) 750 Mg Tablet 1 TAB PO DAILY for 7 Days, #7 TAB 0 Refills Prov: JAYLEN VINCENT MD 03/27/25 Additional Instructions: Patient and the caregiver have been informed of all the diagnostic tests and the imaging conducted during the today's visit to the emergency room and has verbalized understanding of the results I have personally reviewed and interpreted all diagnostic exams performed here in the ER today as well as the vital signs documented by the nursing staff. The patient is now being discharged to home and should follow up with the primary care physician or the specialist as directed by the ER staff. 1 schedule a follow-up appointment; call your primary care physician's office on the next business day to set up a follow-up appointment. 2. Monitor symptoms; if your symptoms worsen return to the emergency room immediately. 3. Return to school/work; you may return to work or school in 2 days or as directed by your primary care physician. 4. Manage pain and fever; take [id number] Tylenol or Advil for pain or fever if there are no contraindications follow the recommended dosage instructions. 5. Stay well hydrated; drink plenty of oral fluids to stay hydrated. 6. Take prescribed medications; take any medications prescribed in the emergency room as directed bring them with you to your primary care physician visit for possible adjustments. 7. Complete medication course; finish the entire course of medication as prescribed even if you start feeling better. Do not have any leftover medication unless instructed otherwise. 8. Follow up on culture results; if a urine culture and wound culture was ordered in the emergency room please follow-up with your primary care physician within 2-3 days to review the culture and sensitivity report for appropriate antibiotic therapy adjustments. 9. Resume home medications; you may resume taking your home medications unless instructed otherwise. 10. Reassessment instructions; you will need to be reassessed for removal of sutures/araceli in 7-10 days from today's visit here in the emergency department. If any were placed during her Emergency visit today you can return here to the emergency department to have them removed or go to your nearest urgent care center or your primary care physician. Please keep the wound as clean and dry as possible and do not apply any ointments keep the wound closed if your outdoors. These instructions should help you manage your condition effectively and ensure a smooth transition from the emergency room to follow up care with your primary care physician 11. Discussed the adverse effects of Levaquin antibiotic including a possible tendon rupture of Achilles. Patient is allergic to penicillin, at his advanced age cell phone reminds also have higher incidence of adverse effects. Patient verbalized understanding PLEASE MAKE AN APPOINTMENT WITH ENT PHYSICIAN-DR. MURPHY--telephone [phone] Referrals: MARIBEL ARREOLA DO (PCP) JAYLEN VINCENT MD Mar 27, 2025 19:36
[2025-03-27] MEDS: ORPHENADRINE 60MG/2ML IM ONE (20:07)
--- NOTE | 2025-03-27 20:11 | HMCIMG ---
EXAM: CT Maxillofacial Without IV contrast. CLINICAL HISTORY: h/o fall facial injury and abrasions TECHNIQUE: Axial computed tomography images of the face without intravenous contrast. Sagittal and coronal reformatted images were generated. CONTRAST: None. COMPARISON: None provided. FINDINGS: FACIAL BONES/ORBITS: Nasal bone fractures, fracture of the vomer SOFT TISSUES: The soft tissues are unremarkable. No radiopaque foreign body or focal fluid collection seen. MISCELLANEOUS: Numerous dental caries IMPRESSION: 1. Nasal bone fractures, fracture of the vomer 2. Numerous dental caries /[place]
[2025-03-27] MEDS ORDERED: LEVO750T90 PO (20:25)
--- NOTE | 2025-03-27 20:30 | NUR ---
ABRASIONS TO FACE CLEANED WITH SKIN CLEANSER, PATIENT TOLERATED WELL
== END 2025-03-27 20:57 | disposition home or self-care (01) ==
LOC: EDH 18:48
DX: S02.2XXA Fracture of nasal bones, initial encounter for closed fracture (principal); S00.212A Abrasion of left eyelid and periocular area, initial encounter; E11.9 Type 2 diabetes mellitus without complications; E78.00 Pure hypercholesterolemia, unspecified; I10 Essential (primary) hypertension; Z79.4 Long term (current) use of insulin; Z79.899 Other long term (current) drug therapy; Z88.0 Allergy status to penicillin; W01.0XXA Fall on same level from slipping, tripping and stumbling without subsequent striking against object, initial encounter; Y93.89 Activity, other specified; Y92.89 Other specified places as the place of occurrence of the external cause; Y99.8 Other external cause status
CPT/HCPCS: 70486; 90471; 90714; 96372; 99285; J2360